=== PATIENT | male | born 1980 | race Two or more races ===

== ENCOUNTER 2019-08-23 07:41 | Emergency (ER) | payer SELFPAY ==
[~2019-08-23] VITALS: Ht 167.6 cm; Wt 72.7 kg
[2019-08-23] MEDS ORDERED: fentaNYL PF VIAL 100 MCG/2 ML VIAL IV ONE (08:45)
[2019-08-23] MEDS ORDERED: ONDANSETRON PF 4 MG/2 ML VIAL. IV ONE (08:45)
[2019-08-23] MEDS ORDERED: IV NORMAL SALINE 1000ML BAG 1,000 ML IV ONE (08:45)
[2019-08-23 09:22] LABS: BASO % 1 % (0-3); EOS % 1 % (0-3); HEMATOCRIT 43.3 % (39.0-53.0); HEMOGLOBIN 14.8 g/dL (13.0-17.5); LYMPH # 0.5 x10^3/uL (1.0-4.8); LYMPH % 11 % (24-48); MEAN CORPUSCULAR HEMOGLOBIN 29 pg (25-35); MEAN CORPUSCULAR HGB CONC 34 g/dL (31-37); MEAN CORPUSCULAR VOLUME 84 fL (79-100); MONO # 0.3 x10^3/uL (0.0-1.1); MONO % 6 % (0-9); NEUT # 3.6 x10^3/uL (1.8-7.7); NEUT % 82 % (31-73); PLATELET COUNT 285 x10^3/uL (140-400); RED BLOOD COUNT 5.16 x10^6/uL (4.30-5.70); RED CELL DISTRIBUTION WIDTH 13.5 % (11.5-14.5); WHITE BLOOD COUNT 4.4 x10^3/uL (4.0-11.0)
[2019-08-23 09:29] LABS: BILIRUBIN,URINE NEGATIVE (NEG); CLARITY,URINE CLEAR; COLOR,URINE YELLOW; NITRITE,URINE NEGATIVE (NEG); PROTEIN,URINE NEGATIVE (NEG-TRACE); UROBILINOGEN,URINE 0.2 mg/dL (0.2 mg/dL)
[2019-08-23 09:50] LABS: AMORPHOUS SEDIMENT,UR PRESENT /HPF; AMPHETAMINE/METHAMPHETAMINE NEG (NEG); BACTERIA,URINE 0 /HPF (0-FEW); BARBITURATES NEG (NEG); BENZODIAZEPINES NEG (NEG); CANNABINOIDS NEG (NEG); COCAINE NEG (NEG); METHADONE NEG (NEG); OPIATES NEG (NEG); PHENCYCLIDINE NEG (NEG); RBC,URINE 0 /HPF (0-2); WBC,URINE 0 /HPF (0-4)
[2019-08-23 09:56] LABS: CALCIUM 9.1 mg/dL (8.5-10.1); GFR 83.2; POTASSIUM 3.9 mmol/L (3.5-5.1)
[2019-08-23] MEDS ORDERED: IOHEXOL 300 MG/ML 100ML VIAL. IV ONE (10:00)
[2019-08-23 10:02] LABS: ALBUMIN 4.3 g/dL (3.4-5.0); ALBUMIN/GLOBULIN RATIO 1.3 (1.0-1.7); MAGNESIUM 2.2 mg/dL (1.8-2.4); TOTAL BILIRUBIN 0.3 mg/dL (0.2-1.0); TOTAL PROTEIN 7.6 g/dL (6.4-8.2)
[2019-08-23 10:15] VITALS: BP 148/78
[2019-08-23] MEDS ORDERED: CONTRAST GIVEN. MC PRN (10:15)
--- NOTE | 2019-08-23 10:24 | RAD ---
PQRS Compliance Statement: One or more of the following individualized dose reduction techniques were utilized for this examination: 1. Automated exposure control 2. Adjustment of the mA and/or kV according to patient size 3. Use of iterative reconstruction technique CT abdomen/pelvis with contrast 08/23/2019 8:33 AM INDICATION: Abdominal pain COMPARISON: None available TECHNIQUE: Multiple axial CT images of the abdomen and pelvis were obtained after the intravenous administration of 75 mL Omnipaque 300. Coronal and sagittal reformats are provided. FINDINGS: Visualized portions of the lung bases are clear. Heart size is within normal limits. No suspicious hepatic masses are identified. Liver is homogeneous in enhancement. Spleen, bilateral adrenal glands, and pancreas are normal in appearance. Gallbladder is present without adjacent inflammatory changes. The abdominal aorta is normal in course and caliber. There are no pathologically enlarged lymph nodes in the abdomen and pelvis. There is no abdominal free fluid. There is no free intraperitoneal air. The kidneys enhance symmetrically. There is no suspicious renal mass. There is no hydronephrosis. There are no suspected calculi within the kidneys, ureters or urinary bladder. Moderate amount of stool noted throughout the colon. No bowel obstruction or inflammation. Appendix is normal in appearance. Terminal ileum is normal. No suspicious osseous normality is identified. Mild scalloping of the S3 and S4 vertebral bodies could be associated with underlying Tarlov cysts. IMPRESSION: 1. No acute abnormality identified within the abdomen and pelvis. Appendix is normal. Moderate amount of stool noted throughout the colon. 2. Mild expansion of the neural foramen with scalloping of the S3 and S4 vertebral bodies could reflect underlying Tarlov cysts there is a there is persistent clinical concern, nonemergent MRI of the pelvis would be of benefit. Electronically signed by: Sania Rasmussen MD (08/23/2019 10:22 AM) [facility]
[2019-08-23] MEDS ORDERED: PANT40TA77 PO (10:41)
--- NOTE | 2019-08-23 10:41 | PHYS DOC ---
Past Medical History Past Medical History: Pneumonia Additional Past Medical Histor: GASTRITIS, COVID-25 MAY 2019 Smoking Status: Never Smoker Alcohol Use: Occasionally General Adult EDM: Chief Complaint: ABDOMINAL PAIN HPI: HPI: Patient is a 39-year-old male who presents with lower abdominal pain. He states the pain starts in his back and wraps around his lower abdomen. He denies any fever chills or sweats. He denies any nausea or vomiting. He denies any melena or hematemesis. He denies any dysuria or gross hematuria. He does state that he drinks several beers daily has been on omeprazole in the past but is recently stopped. He states it seems like when he eats it gets worse. [] Review of Systems: Review of Systems: Constitutional: Denies fever or chills. [] Eyes: Denies change in visual acuity. [] HENT: Denies nasal congestion or sore throat. [] Respiratory: Denies cough or shortness of breath. [] Cardiovascular: Denies chest pain or edema. [] GI: Per HPI [] : Denies dysuria. [] Musculoskeletal: Denies back pain or joint pain. [] Integument: Denies rash. [] Neurologic: Denies headache, focal weakness or sensory changes. [] Endocrine: Denies polyuria or polydipsia. [] Lymphatic: Denies swollen glands. [] Psychiatric: Denies depression or anxiety. [] Heart Score: Risk Factors: Risk Factors: DM, Current or recent (<one month) smoker, HTN, HLP, family history of CAD, obesity. Risk Scores: Score 0 - 3: 2.5% MACE over next 6 weeks - Discharge Home Score 4 - 6: 20.3% MACE over next 6 weeks - Admit for Clinical Observation Score 7 - 10: 72.7% MACE over next 6 weeks - Early Invasive Strategies Current Medications: Current Medications Medications (Trade) Dose Ordered Sig/Marisol Start Time Stop Time Status Last Admin Dose Admin Fentanyl Citrate (Fentanyl 2ml Vial) 50 mcg 1X ONCE 08/23/19 08:45 08/23/19 08:50 DC 08/23/19 09:19 50 MCG Info (CONTRAST GIVEN -- Rx MONITORING) 1 each PRN DAILY PRN 08/23/19 10:15 08/25/19 10:14 Iohexol (Omnipaque 300 Mg/ml) 75 ml 1X ONCE 08/23/19 10:00 08/23/19 10:03 DC 08/23/19 10:16 75 ML Ondansetron HCl (Zofran) 4 mg 1X ONCE 08/23/19 08:45 08/23/19 08:50 DC 08/23/19 09:14 4 MG Sodium Chloride 1,000 ml @ 1,000 mls/hr 1X ONCE 08/23/19 08:45 08/23/19 09:44 DC 08/23/19 09:07 1,000 MLS/HR Allergies: Allergies: Allergies Coded Allergies Type Severity Reaction Last Updated Verified No Known Drug Allergies 08/23/19 No Physical Exam: PE: Constitutional: Well developed, well nourished, no acute distress, non-toxic appearance. [] HENT: Normocephalic, atraumatic, bilateral external ears normal, oropharynx moist, no oral exudates, nose normal. [] Eyes: PERRLA, EOMI, conjunctiva normal, no discharge. [] Neck: Normal range of motion, no tenderness, supple, no stridor. [] Cardiovascular:Heart rate regular rhythm, no murmur [] Lungs & Thorax: Bilateral breath sounds clear to auscultation [] Abdomen: Bowel sounds normal, soft, no tenderness, no masses, no pulsatile masses. [] Skin: Warm, dry, no erythema, no rash. [] Back: No tenderness, no CVA tenderness. [] Extremities: No tenderness, no cyanosis, no clubbing, ROM intact, no edema. [] Neurologic: Alert and oriented X 3, normal motor function, normal sensory fun ction, no focal deficits noted. [] Psychologic: Affect normal, judgement normal, mood normal. [] Current Patient Data: Labs: Laboratory Tests Test 08/23/19 09:04 White Blood Count 4.4 x10^3/uL (4.0-11.0) Red Blood Count 5.16 x10^6/uL (4.30-5.70) Hemoglobin 14.8 g/dL (13.0-17.5) Hematocrit 43.3 % (39.0-53.0) Mean Corpuscular Volume 84 fL (79-100) Mean Corpuscular Hemoglobin 29 pg (25-35) Mean Corpuscular Hemoglobin Concent 34 g/dL (31-37) Red Cell Distribution Width 13.5 % (11.5-14.5) Platelet Count 285 x10^3/uL (140-400) Neutrophils (%) (Auto) 82 % (31-73) H Lymphocytes (%) (Auto) 11 % (24-48) L Monocytes (%) (Auto) 6 % (0-9) Eosinophils (%) (Auto) 1 % (0-3) Basophils (%) (Auto) 1 % (0-3) Neutrophils # (Auto) 3.6 x10^3/uL (1.8-7.7) Lymphocytes # (Auto) 0.5 x10^3/uL (1.0-4.8) L Monocytes # (Auto) 0.3 x10^3/uL (0.0-1.1) Eosinophils # (Auto) 0.0 x10^3/uL (0.0-0.7) Basophils # (Auto) 0.0 x10^3/uL (0.0-0.2) Urine Collection Type Unknown Urine Color Yellow Urine Clarity Clear Urine pH 8.0 (<5.0-8.0) Urine Specific Pillager 1.020 (1.000-1.030) Urine Protein Negative mg/dL (NEG-TRACE) Urine Glucose (UA) Negative mg/dL (NEG) Urine Ketones (Stick) Negative mg/dL (NEG) Urine Blood Negative (NEG) Urine Nitrite Negative (NEG) Urine Bilirubin Negative (NEG) Urine Urobilinogen Dipstick 0.2 mg/dL (0.2 mg/dL) Urine Leukocyte Esterase Negative (NEG) Urine RBC 0 /HPF (0-2) Urine WBC 0 /HPF (0-4) Urine Amorphous Sediment Present /HPF Urine Bacteria 0 /HPF (0-FEW) Sodium Level 137 mmol/L (136-145) Potassium Level 3.9 mmol/L (3.5-5.1) Chloride Level 101 mmol/L (98-107) Carbon Dioxide Level 24 mmol/L (21-32) Anion Gap 12 (6-14) Blood Urea Nitrogen 15 mg/dL (8-26) Creatinine 1.0 mg/dL (0.7-1.3) Estimated GFR (Cockcroft-Gault) 83.2 BUN/Creatinine Ratio 15 (6-20) Glucose Level 108 mg/dL (70-99) H Calcium Level 9.1 mg/dL (8.5-10.1) Magnesium Level 2.2 mg/dL (1.8-2.4) Total Bilirubin 0.3 mg/dL (0.2-1.0) Aspartate Amino Transferase (AST) 22 U/L (15-37) Alanine Aminotransferase (ALT) 32 U/L (16-63) Alkaline Phosphatase 45 U/L (46-116) L Total Protein 7.6 g/dL (6.4-8.2) Albumin 4.3 g/dL (3.4-5.0) Albumin/Globulin Ratio 1.3 (1.0-1.7) Lipase 109 U/L (73-393) Urine Opiates Screen Neg (NEG) Urine Methadone Screen Neg (NEG) Urine Barbiturates Neg (NEG) Urine Phencyclidine Screen Neg (NEG) Urine Amphetamine/Methamphetamine Neg (NEG) Urine Benzodiazepines Screen Neg (NEG) Urine Cocaine Screen Neg (NEG) Urine Cannabinoids Screen Neg (NEG) Ethyl Alcohol Level < 10 mg/dL (0-10) Urine Ethyl Alcohol Neg (NEG) Laboratory Tests 08/23/19 09:04 Laboratory Tests 08/23/19 09:04 Vital Signs: Vital Signs Date Time Temp Pulse Resp B/P (MAP) Pulse Ox O2 Delivery O2 Flow Rate FiO2 08/23/19 09:54 16 100 Room Air 08/23/19 09:30 56 137/86 (103) 08/23/19 08:13 99.0 99.0 EKG: EKG: [] Radiology/Procedures: Radiology/Procedures: []REASON: abdominal pain PROCEDURE: CT ABD PELV W/ IV CONTRST ONLY PQRS Compliance Statement: One or more of the following individualized dose reduction techniques were utilized for this examination: 1. Automated exposure control 2. Adjustment of the mA and/or kV according to patient size 3. Use of iterative reconstruction technique CT abdomen/pelvis with contrast 08/23/2019 8:33 AM INDICATION: Abdominal pain COMPARISON: None available TECHNIQUE: Multiple axial CT images of the abdomen and pelvis were obtained after the intravenous administration of 75 mL Omnipaque 300. Coronal and sagittal reformats are provided. FINDINGS: Visualized portions of the lung bases are clear. Heart size is within normal limits. No suspicious hepatic masses are identified. Liver is homogeneous in enhancement. Spleen, bilateral adrenal glands, and pancreas are normal in appearance. Gallbladder is present without adjacent inflammatory changes. The abdominal aorta is normal in course and caliber. There are no pathologically enlarged lymph nodes in the abdomen and pelvis. There is no abdominal free fluid. There is no free intraperitoneal air. The kidneys enhance symmetrically. There is no suspicious renal mass. There is no hydronephrosis. There are no suspected calculi within the kidneys, ureters or urinary bladder. Moderate amount of stool noted throughout the colon. No bowel obstruction or inflammation. Appendix is normal in appearance. Terminal ileum is normal. No suspicious osseous normality is identified. Mild scalloping of the S3 and S4 vertebral bodies could be associated with underlying Tarlov cysts. IMPRESSION: 1. No acute abnormality identified within the abdomen and pelvis. Appendix is normal. Moderate amount of stool noted throughout the colon. 2. Mild expansion of the neural foramen with scalloping of the S3 and S4 vertebral bodies could reflect underlying Tarlov cysts there is a there is persistent clinical concern, nonemergent MRI of the pelvis would be of benefit. Course & Med Decision Making: Course & Med Decision Making Pertinent Labs and Imaging studies reviewed. (See chart for details) [ED course: Evaluation reveals a 39-year-old male who is a regular drinker. He is recently stopped his proton pump inhibitor. I suspect this has to do with his alcohol consumption related to a gastritis. Otherwise his laboratory studies and CT scan is unremarkable. He is safe for discharge home. Dragon Disclaimer: Dragon Disclaimer: This electronic medical record was generated, in whole or in part, using a voice recognition dictation system. Departure Departure Impression: Primary Impression: Abdominal pain Qualified Codes: R10.84 - Generalized abdominal pain Additional Impression: Alcoholic gastritis without bleeding Qualified Codes: K29.20 - Alcoholic gastritis without bleeding Disposition: HOME, SELF-CARE Condition: STABLE Referrals: NO PCP (PCP) Patient Instructions: Abdominal Pain, Alcoholic Gastritis-Brief Additional Instructions: Return to the emergency department with any new or concerning symptoms Scripts Pantoprazole Sodium (PROTONIX ) 40 Mg Tablet. 40 MG PO DAILYAC for GERD, #90 TAB Prov: GLENDA LITTLE DO 08/23/19 Justicifation of Admission Dx: Justifications for Admission: Justification of Admission Dx: No GLENDA LITTLE DO Aug 23, 2019 10:41
== END 2019-08-23 11:30 | disposition home or self-care (01) ==
LOC: ER 07:41
DX: K29.20 Alcoholic gastritis without bleeding (principal); R10.84 Generalized abdominal pain; Z79.899 Other long term (current) drug therapy
CPT/HCPCS: 36415; 74177; 80053; 80307; 81001; 83690; 83735; 85025; 96361; 96374; 96375; 99285; G0480; J2405; J3010; J7030; Q9967

== ENCOUNTER 2019-09-29 10:55 | Emergency (ER) | payer SELFPAY ==
[~2019-09-29] VITALS: Ht 160 cm; Wt 72.0 kg
[~2019-09-29 10:55] MED LIST: PANT40TA77 PO
[2019-09-29 11:10] VITALS: BP 148/78
--- NOTE | 2019-09-29 12:24 | RAD ---
THORACIC SPINE 3V DATE: 09/29/2019 11:33 AM INDICATION: Reason: covid 3 months ago, pain in right lateral back / Spl. Instructions: / History: COMPARISON: None. FINDINGS: The upper thoracic vertebrae are obscured on the lateral view by overlying soft tissue and osseous structures. Bones/Alignment: No evidence of acute compression fracture. No listhesis. Joints: The disc space heights are normal. Miscellaneous: None. IMPRESSION: No evidence of acute compression fracture. Electronically signed by: Scott Dave MD (09/29/2019 12:21 PM) [id number]
--- NOTE | 2019-09-29 12:25 | RAD ---
CHEST PA LATERAL INDICATION: Reason: covid 3 months ago, pain in right lateral back / Spl. Instructions: / History: . COMPARISON STUDY: None. FINDINGS: Lungs: Normal lung volume. No pulmonary mass or consolidation. The tracheobronchial tree and hilar structures are normal. Pleura: No pleural effusion or pneumothorax. Heart and Mediastinum: The cardiomediastinal silhouette is normal. The great vessels of the thorax are normal. IMPRESSION: No acute cardiopulmonary process. Electronically signed by: Scott Dave MD (09/29/2019 12:22 PM) [id number]
[2019-09-29] MEDS ORDERED: NAPR-514 PO (13:03)
[2019-09-29] MEDS ORDERED: CYCL10TA2 PO (13:03)
--- NOTE | 2019-09-29 13:04 | PHYS DOC ---
Past Medical History Past Medical History: Pneumonia Additional Past Medical Histor: GASTRITIS, COVID-25 MAY 2019 Past Surgical History: Other Additional Past Surgical Histo: dental Smoking Status: Never Smoker Alcohol Use: None General Adult EDM: Chief Complaint: SHOUDLER HPI: HPI: Patient is a 39 year old male who presents to the emergency department with complaints of right paraspinal and musculoskeletal thoracic back pain for the last 2 weeks. 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 He denies any recent fall or injury. He denies any pain with palpation of his right shoulder. Patient states that he had COVID 19 back in May 2019 and he is concerned that something is wrong with him. He denies any shortness of breath, fever, hemoptysis, chest pain, or palpitations. He currently rates the pain a 10 out of 10 on the pain scale, he denies any alleviating factors, the pain is worse with palpation of the aforementioned areas. Patient is Upper Sorbian-speaking only, therefore the [employer] content assistant line was used to speak with the patient. Review of Systems: Review of Systems: Constitutional: Denies fever or chills. [] HENT: Denies nasal congestion or sore throat. [] Respiratory: Denies cough or shortness of breath. [] Cardiovascular: Denies chest pain or edema. [] GI: Denies abdominal pain, nausea, vomiting Musculoskeletal: See HPI Integument: Denies rash. [] Neurologic: Denies focal weakness or sensory changes. [] Psychiatric: Denies depression or anxiety. [] Heart Score: Risk Factors: Risk Factors: DM, Current or recent (<one month) smoker, HTN, HLP, family history of CAD, obesity. Risk Scores: Score 0 - 3: 2.5% MACE over next 6 weeks - Discharge Home Score 4 - 6: 20.3% MACE over next 6 weeks - Admit for Clinical Observation Score 7 - 10: 72.7% MACE over next 6 weeks - Early Invasive Strategies Allergies: Allergies: Allergies Coded Allergies Type Severity Reaction Last Updated Verified No Known Drug Allergies 08/23/19 No Physical Exam: PE: Constitutional: Well developed, well nourished, no acute distress, non-toxic appearance. [] HENT: Normocephalic, atraumatic, bilateral external ears normal, nose normal. [] Eyes: PERRLA, EOMI, conjunctiva normal, no discharge. [] Neck: Normal range of motion, no stridor. [] Cardiovascular:Heart rate regular rhythm Lungs & Thorax: Respirations even and unlabored, no retractions, no respiratory distress, lungs CTA Back: Thoracic spine tenderness to palpation without deformity, step-off, or crepitus; right paraspinal thoracic tenderness to palpation, no subcutaneous emphysema Skin: Warm, dry, no erythema, no rash. [] Extremities: No cyanosis, ROM intact, no edema. [] Neurologic: Alert and oriented X 3, no focal deficits noted. [] Psychologic: Affect normal, judgement normal, mood normal. [] Current Patient Data: Vital Signs: Vital Signs Date Time Temp Pulse Resp B/P (MAP) Pulse Ox O2 Delivery O2 Flow Rate FiO2 09/29/19 11:10 98.8 92 16 148/78 (101) 98 Room Air 98.8 EKG: EKG: [] Radiology/Procedures: Radiology/Procedures: PROCEDURE: THORACIC SPINE 3V THORACIC SPINE 3V DATE: 09/29/2019 11:33 AM INDICATION: Reason: covid 3 months ago, pain in right lateral back / Spl. Instructions: / History: COMPARISON: None. FINDINGS: The upper thoracic vertebrae are obscured on the lateral view by overlying soft tissue and osseous structures. Bones/Alignment: No evidence of acute compression fracture. No listhesis. Joints: The disc space heights are normal. Miscellaneous: None. IMPRESSION: No evidence of acute compression fracture. PROCEDURE: CHEST PA & LATERAL CHEST PA LATERAL INDICATION: Reason: covid 3 months ago, pain in right lateral back / Spl. Instructions: / History: . COMPARISON STUDY: None. FINDINGS: Lungs: Normal lung volume. No pulmonary mass or consolidation. The tracheobronchial tree and hilar structures are normal. Pleura: No pleural effusion or pneumothorax. Heart and Mediastinum: The cardiomediastinal silhouette is normal. The great vessels of the thorax are normal. IMPRESSION: No acute cardiopulmonary process. [] Course & Med Decision Making: Course & Med Decision Making Pertinent Labs and Imaging studies reviewed. (See chart for details) Patient is a 39-year-old male who presents to the emergency department with complaints of right upper back pain for the last 2 weeks without any injury. X-rays of the T-spine and chest PA and lateral were negative for any acute findings. I advised the patient that this is likely due to musculoskeletal strain. Prescriptions written for Flexeril and naproxen. Recommend application of ice or heat to sore areas as needed for comfort. Patient verbalized an understanding of home care, medications, follow-up, and return to ED instructions and was in agreement with the plan of care. [] Dragon Disclaimer: Dragon Disclaimer: This electronic medical record was generated, in whole or in part, using a voice recognition dictation system. Departure Departure Impression: Primary Impression: Acute thoracic myofascial strain Qualified Codes: S29.019A - Strain of muscle and tendon of unspecified wall of thorax, initial encounter Disposition: HOME, SELF-CARE Condition: STABLE Referrals: NO PCP (PCP) Patient Instructions: Thoracic Strain, [id number] Additional Instructions: Fill the prescription(s) and use as directed. Apply heat or ice for to sore areas as needed for comfort. Activity as tolerated. Follow up with your primary care doctor this week if symptoms persist, return to the ER if symptoms worsen. Scripts Naproxen (NAPROXEN) 500 Mg Tablet 1 TAB PO BID PRN for PAIN for 10 Days, #20 TAB 0 Refills Prov: NYDIA TAMEZ [employer] SECURITY ARCHITECT 09/29/19 Cyclobenzaprine Hcl (CYCLOBENZAPRINE HCL) 10 Mg Tablet 1 TAB PO TID PRN for PAIN for 10 Days, #30 TAB 0 Refills Prov: NYDIA TAMEZ APRN 09/29/19 Justicifation of Admission Dx: Justifications for Admission: Justification of Admission Dx: No NYDIA TAMEZ APRN Sep 29, 2019 13:04
== END 2019-09-29 13:20 | disposition home or self-care (01) ==
LOC: ER 10:55
DX: S29.012A Strain of muscle and tendon of back wall of thorax, initial encounter (principal); Z98.890 Other specified postprocedural states; X58.XXXA Exposure to other specified factors, initial encounter; Y93.89 Activity, other specified; Y92.89 Other specified places as the place of occurrence of the external cause; Y99.8 Other external cause status
CPT/HCPCS: 71046; 72072; 99284